=== PATIENT | male | born 1955 | race Caucasian/White ===

== ENCOUNTER → 2017-10-28 08:36 | Outpatient (CLI) | payer BC, SELFPAY ==
[2017-10-28 09:44] LABS: INR 3.7 (0.9-1.3); Prothrombin Time 41.2 SECONDS (10.1-12.7)
== END ==
PROVIDERS: PCP Internal Medicine; Visit Provider Internal Medicine
DX: I48.91 Unspecified atrial fibrillation (principal); Z79.01 Long term (current) use of anticoagulants
CPT/HCPCS: 36415; 85610